=== PATIENT | male | born 1990 | race African-American/Black ===

== ENCOUNTER 2022-10-23 12:53 | Emergency (ER) | payer MEDICAID ==
[~2022-10-23] VITALS: Ht 180.3 cm; Wt 68.0 kg
[2022-10-23 13:04] VITALS: O2SAT 100
[2022-10-23] MEDS ORDERED: IBUP-2029 MT (15:21)
[2022-10-23] MEDS ORDERED: IBUPROFEN 600MG TABLET PO ONE (15:45)
[2022-10-23 16:34] VITALS: BP 131/88; PULSE 65; RESP 19; TEMP 98.2
== END 2022-10-23 16:36 | disposition home or self-care (01) ==
LOC: ER 12:53
DX: S00.93XA Contusion of unspecified part of head, initial encounter (principal); R52 Pain, unspecified; Z00.00 Encounter for general adult medical examination without abnormal findings; Y04.0XXA Assault by unarmed brawl or fight, initial encounter; Y93.89 Activity, other specified; Y92.89 Other specified places as the place of occurrence of the external cause; Y99.8 Other external cause status
CPT/HCPCS: 71045; 73030; 99284; A4565